=== PATIENT | male | born 2000 | race American Indian/Alaskan Native ===

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

== ENCOUNTER 2018-06-22 12:03 | Emergency (ER) | payer MEDICAID, OTHER ==
[2018-06-22 15:24] VITALS: BP 118/78
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
== END 2018-06-22 15:55 | disposition home or self-care (01) ==
LOC: ED 12:03
DX: R07.89 Other chest pain (principal); V49.49XA Driver injured in collision with other motor vehicles in traffic accident, initial encounter; Y93.89 Activity, other specified; Y92.488 Other paved roadways as the place of occurrence of the external cause; Y99.8 Other external cause status
CPT/HCPCS: 99281

== ENCOUNTER 2019-03-07 21:05 | Emergency (ER) | payer SELFPAY ==
--- NOTE | 2019-03-07 21:57 | Emergency Department Report ---
Blank Doc - Documentation Documentation: 19-year-old male that presents with left ring finger pain after slammed against the door. This initial assessment/diagnostic orders/clinical plan/treatment(s) is/are subject to change based on patient's health status, clinical progression and re- assessment by fellow clinical providers in the ED. Further treatment and workup at subsequent clinical providers discretion. Patient/guardians urged not to elope from the ED as their condition may be serious if not clinically assessed and managed. Initial orders include: 1- Patient sent to [facility] for further evaluation and treatment 2- xrays
[2019-03-07] MEDS ORDERED: BOOSTRIX IM ONE (21:59)
[2019-03-07] MEDS ORDERED: IBUPROFEN PO ONE ×2 (22:00→22:03)
--- NOTE | 2019-03-07 22:41 | XRay Report ---
LEFT FINGERS 3 VIEWS INDICATION / CLINICAL INFORMATION: finger pain COMPARISON: None available. FINDINGS: BONES / JOINT(S): No acute fracture or subluxation. No significant arthritis. SOFT TISSUES: No significant abnormality. ADDITIONAL FINDINGS: None. Signer Name: Tima Lugo MD Signed: 03/07/2019 10:36 PM Workstation Name: [id number]
--- NOTE | 2019-03-07 23:48 | Emergency Department Report ---
Upper Extremity - HPI Chief Complaint: Extremity Injury, Upper Stated Complaint: LEFT HAND SLAMMED IN DOOR Time Seen by Provider: 03/07/19 21:56 Upper Extremity: Left Ring Finger Occurred When: Today Mechanism: Crush Severity: moderate Symptoms: Yes Pain with Movement, Yes Deformity (nail broken), Yes Swelling, Yes Bruising/Ecchymosis, No Limited Range of Movement, No Numbness, No Weakness, No Laceration or Abrasion Other History: Mr. Niño is a very pleasant healthy 19-year-old male without significant past medical history who slammed his left ring finger in a large metal door while at work. He has broken nail and bleeding in the area. He has moderate severe pain at the distal portion of the left ring finger. No other injuries. ED Review of Systems ROS: Stated complaint: LEFT HAND SLAMMED IN DOOR Other details as noted in HPI Constitutional: denies: fever, malaise Skin: rash, lesions, change in hair/nails Neurological: denies: numbness, paresthesias ED Past Medical Hx - Past Medical History Previous Medical History?: No - Surgical History Past Surgical History?: No - Social History Smoking Status: Never Smoker - Medications Home Medications: Home Medications Medication Instructions Recorded Confirmed Last Taken Type Sulfamethoxazole/Trimethoprim 1 each PO BID #14 tablet 03/09/14 Unknown Rx [Bactrim Ds] traMADol [Ultram 50 MG tab] 50 mg PO Q6HR PRN #20 tablet 03/09/14 Unknown Rx Acetaminophen/Codeine [Tylenol 1 tab PO Q6H PRN 3 Days #12 tab 06/04/17 Unknown Rx /Codeine # 3 tab] Clindamycin [Clindamycin CAP] 300 mg PO Q8H 10 Days #30 cap 06/04/17 Unknown Rx Ibuprofen [Motrin] 600 mg PO Q8H PRN 5 Days #15 tablet 06/04/17 Unknown Rx Upper Extremity Exam - Exam General: Vital signs noted. No distress. Alert and acting appropriately. Shoulder Exam: Yes Normal Range of Motion in Shoulder, No Shoulder Tenderness, No Clavicle Tenderness Arm Exam: No Arm/Humerus Tenderness, No Arm Deformity Forearm: No Forearm Tenderness, No Forearm Deformity Wrist: Yes Normal ROM in Wrist, No Wrist Tenderness Hand: Yes Hand Tenderness, Yes Digit Tenderness, Yes Normal ROM in Digit(s), No Digit(s) Deformity (swollen distal ring finger left horizontal mid nail laceration) ED Course Vital Signs 03/07/19 22:07 Respiratory 20 Rate ED Medical Decision Making - Medical Decision Making Crush injury to the left long finger with nail laceration: Nailbed intact with proximal nail in place. Given wound care instructions. Recommended ice and ibuprofen elevation. Critical care attestation.: If time is entered above; I have spent that time in minutes in the direct care of this critically ill patient, excluding procedure time. ED Disposition Clinical Impression: Nailbed laceration, finger, Finger contusion Disposition: TO HOME OR SELFCARE Is pt being admited?: No Does the pt Need Aspirin: No Condition: Stable Instructions: Anisha Yao (ED)
[2019-03-07 23:57] VITALS: BP 120/76
== END 2019-03-08 00:04 | disposition home or self-care (01) ==
LOC: ED 21:05
DX: S61.215A Laceration without foreign body of left ring finger without damage to nail, initial encounter (principal); W23.0XXA Caught, crushed, jammed, or pinched between moving objects, initial encounter; Y93.89 Activity, other specified; Y92.89 Other specified places as the place of occurrence of the external cause; Y99.8 Other external cause status
CPT/HCPCS: 90471; 90715